=== PATIENT | male | born 1980 | race Caucasian/White ===

== ENCOUNTER 2022-02-26 19:30 | Emergency (ER) | payer OTHER ==
[2022-02-26 19:46] VITALS: BP 121/84; PULSE 75; RESP 18; TEMP 97.9; BMI 23.5
[2022-02-26] MEDS ORDERED: DIPHTH,PERTUSS(ACELL),TET 0.5 ML DISP.SYRIN IM ONE ×2 (21:10→21:21)
== END 2022-02-26 22:11 | disposition home or self-care (01) ==
LOC: JERFT 19:30
PROC: 0HQGXZZ Repair Left Hand Skin, External Approach (ICD-10-PCS; principal; 2022-02-26)
PROC: 3E0234Z Introduction of Serum, Toxoid and Vaccine into Muscle, Percutaneous Approach (ICD-10-PCS; 2022-02-26)
DX: S61.217A Laceration without foreign body of left little finger without damage to nail, initial encounter (principal); W26.0XXA Contact with knife, initial encounter
CPT/HCPCS: 12001-25; 90471; 90715; 99282-25

== ENCOUNTER 2023-03-05 17:01 | Emergency (ER) | payer OTHER ==
[2023-03-05 17:23] VITALS: BP 121/56; PULSE 75; RESP 16; TEMP 98.4; BMI 22.7
== END 2023-03-05 20:25 | disposition home or self-care (01) ==
LOC: JERFT 17:01 → JER 17:01 → JERFT 20:25
DX: K08.89 Other specified disorders of teeth and supporting structures (principal); K14.0 Glossitis; B37.0 Candidal stomatitis
CPT/HCPCS: 87651; 99283-25